=== PATIENT | female | born 1985 | race Caucasian/White ===

== ENCOUNTER 2021-03-18 19:33 | Emergency (ER) | payer SELFPAY ==
[2021-03-18 19:38] VITALS: BP 115/80; PULSE 75; RESP 16; TEMP 36.4; O2SAT 98
[2021-03-18 19:42] VITALS: RESP 16
--- NOTE | 2021-03-18 20:15 | ED.GENADUL_ITS ---
Discharge Plan Disposition Patient Disposition: HOME Condition: Stable Discharge Details Clinical Impression: Anxiety, Grief reaction, Insomnia Primary Care Provider: Unknown,Unknown ED Provider: Liliam Parks Discharge Instructions Instructions: Grief and Loss (ED), Anxiety (ED) Additional Instructions: Drink plenty of fluids and get plenty of rest. Take the Ativan as needed and directed for feelings of anxiety or difficulty sleeping. You can also try [id number] melatonin or sedating antihistamines such as Benadryl or doxylamine as needed and directed for sleep. You have been placed on care management list to help arrange for a follow-up appointment with a primary care doctor in the area for reevaluation. Return immediately to the emergency department if you develop any worsening or new concerning symptoms. Discharge Data Discharge Date/Time-TO BE ENTERED AT DEPARTURE: 03/18/21 21:13 Discharge Physician: Liliam Parks Medical Decision Making 35yo F w/ a h/o anxiety and depression who presents with feelings of anxiety and difficulty sleeping for the past 2 days. Patient recently lost her friend and her aunt and has been struggling with this grief. She has no thoughts of suicide, hallucinations or homicide. She denies any alcohol or drug use. She has no complaint of fever, chest pain, difficulty breathing and appears nontoxic. Her vitals are within normal limits and no acute findings on exam. She states she has not tried any medication to help with sleep but admits to feelings of anxiety. We will send home with 2 tabs of Ativan to take as needed and directed to help with anxiety and/or sleep. Her history and presentation does not appear consistent with an acute infectious, cardiopulmonary or metabolic issue and I do not see indication for labs or imaging at this time and pt is agreeable. test negative. Patient is in the area until May. She was placed on care management list to help arrange for follow-up appointment with the primary care doctor to establish care and for reevaluation. Usual and customary return precautions given prior to discharge. Medical Records Medical records reviewed: Yes I reviewed the patient's medical records. HPI General Mode of arrival: ambulatory . Date/Time Provider Initiated Documentation: 03/18/21 19:50 . Limitations to Documentation: no limitations . Information obtained by: patient . HPI Narrative: Patient is a 35-year-old female with a history of anxiety and depression presents with feelings of anxiety and inability to sleep for the past 2 days due to the recent loss of her friend and her aunt. She states she drove here from [place] yesterday and has not been able to sleep much for the past 2 nights. She states she has not taken any medication to help with sleep. She denies any suicidal or homicidal ideation. She denies any auditory or visual hallucinations. She denies any headache, fever, blurry vision, chest pain, shortness of breath, abdominal pain, nausea, vomiting, diarrhea, leg pain or swelling. General Stated Complaint: Anxiety BISHOP: 4 Review of Systems All systems reviewed & are unremarkable except as noted in HPI and below Constitutional Constitutional: Reports as per HPI, Denies chills and Denies fever(s) Eyes Eyes: Denies blurry vision ENT Ears, Nose, Mouth, and Throat: Denies dizziness, Denies sore throat and Denies throat swelling Cardiovascular Cardiovascular: Denies chest pain and Denies dyspnea Respiratory Respiratory: Denies cough and Denies dyspnea Gastrointestinal Gastrointestinal: Denies abdominal pain, Denies diarrhea and Denies vomiting Genitourinary Genitourinary: Denies hematuria and Denies dysuria Musculoskeletal Musculoskeletal: Denies back pain and Denies numbness Integumentary/Breasts Skin/Breast: Denies lesions and Denies rash Neurologic Neurologic: Denies dizziness, Denies localized weakness and Denies numbness Allergic/Immunologic Allergic/Immunologic: Denies throat swelling [facility] Medical History (Updated 03/18/21 @ 20:59 by Liliam Parks DO) Anxiety Depression Surgical History (Updated 03/18/21 @ 20:53 by Liliam Parks DO) History of repair of ACL Social History Smoking/Tobacco Use Status: Current every day Smoking risk assessment performed?: Yes Alcohol Intake: current Alcohol Intake frequency: a few times a week Drug use: Never Substance use type: does not use Do you feel safe at home: Yes Do you feel safe in your relationship?: Yes Exam Const General: cooperative, healthy appearing and no acute distress [facility] Head: normal to inspection Ears: hearing grossly normal bilaterally and external ears normal General nose exam: external nose normal Mouth: oral mucosae normal Throat: posterior oropharynx normal Eyes General: appearance normal, both eyes and all related structures Periorbital: periorbital findings normal Conjunctivae: conjunctivae normal Sclera: sclerae normal Pupils: PERRL Neck Neck: normal visual inspection Resp Effort & Inspection: normal respiratory effort and able to speak in complete sentences Auscultation: clear to auscultation bilaterally Cardio Rate: regular rate Rhythm: regular rhythm Skin General skin exam: no rashes or lesions noted Neuro General: patient alert, patient awake and patient oriented x3 Motor: muscle tone normal throughout Extrem General: normal to inspection and full ROM Psych Appearance: grossly normal Affect: normal affect Course Vital Signs Vital signs: Vital Signs Temperature 97.6 F 03/18/21 19:38 Pulse 75 03/18/21 19:38 Respiratory Rate 16 03/18/21 19:38 Blood Pressure 115/80 03/18/21 19:38 Pulse Oximetry 98 03/18/21 19:38 Temperature 97.6 F 03/18/21 19:38 Temperature Source Oral 03/18/21 19:38 Pulse 75 03/18/21 19:38 Respiratory Rate 16 03/18/21 19:42 Respiratory Effort Non-Labored 03/18/21 19:42 Respiratory Pattern Normal 03/18/21 19:42 Blood Pressure 115/80 03/18/21 19:38 Pulse Oximetry 98 03/18/21 19:38 Oxygen Delivery Method Room Air 03/18/21 19:38 Oxygen Flow Rate 0 03/18/21 19:38 Pain Level 0 03/18/21 19:38
[2021-03-18] MEDS: LORazepam 0.5 MG TAB 1 MG PO (21:01)
--- NOTE | 2021-03-18 21:02 | NUR.NOTE ---
patient in area till May, needs f/u for anziety and insomnia in two weeks.Nursing Note:
== END 2021-03-18 21:13 | disposition home or self-care (01) ==
PROVIDERS: Emergency Provider Physician Assistant
DX: F43.22 Adjustment disorder with anxiety (principal); G47.00 Insomnia, unspecified
CPT/HCPCS: 81025; 99283